=== PATIENT | male | born 2000 | race Caucasian/White ===

== ENCOUNTER → 2020-08-10 11:37 | Outpatient (BNVA) | payer OTHER, SELFPAY | PROVIDERS: Visit Provider Nurse Practitioner | DX: Z20.828 Contact with and (suspected) exposure to other viral communicable diseases (principal) | CPT/HCPCS: 87635 ==

== ENCOUNTER → 2020-08-13 11:43 | Outpatient (BNVA) | payer OTHER, SELFPAY | PROVIDERS: Visit Provider Family Medicine | DX: Z20.828 Contact with and (suspected) exposure to other viral communicable diseases (principal) | CPT/HCPCS: 87635 ==

== ENCOUNTER → 2021-08-28 13:29 | Outpatient (BNVA) | payer OTHER, SELFPAY | PROVIDERS: Visit Provider Nurse Practitioner Family | DX: Z20.822 Contact with and (suspected) exposure to COVID-19 (principal) | CPT/HCPCS: 87635 ==

== ENCOUNTER 2021-10-09 22:38 | Emergency (ER) | payer OTHER, SELFPAY ==
--- NOTE | 2021-10-09 22:43 | ED_ITS ---
HPI - Extremity Injury (Lower) General: Chief Complaint: Wound/Laceration Stated Complaint: Toe Pain Time Seen by Provider: 10/09/21 22:42 History of Present Illness: 21-year-old male patient comes in today with complaints of bilateral ingrown toenails to each great toe. Patient reports problems for the last several months. Patient was wanting to get the toenails removed tonight. Patient appears well. Patient appears in no acute distress. Review of Systems General: Reports: 10 or more systems reviewed and unremarkable except in HPI and below Skin/Breast: Reports: other (Bilateral ingrown toenails) [facility] ED PFSH: Social History (Updated 08/28/21 @ 10:01 by Yenifer Edgar NP) Smoking and tobacco status: never smoked Physical Exam Const: COMMON NORMALS: alert Resp: COMMON NORMALS: normal respiratory effort Cardio: COMMON NORMALS: regular rate and regular rhythm RATE: regular rate RHYTHM: regular rhythm Extremity: COMMON NORMALS: normal to inspection OTHER: Erythema and swelling noted to surrounding tissue ofbilateral great toenails Neuro: SENSORIUM/ORIENTATION: Yes alert Course Vital Signs: Vital signs: Vital Signs Temperature 98.4 F 10/09/21 22:44 Pulse Rate 92 10/09/21 22:44 Respiratory Rate 18 10/09/21 22:44 Blood Pressure 159/96 10/09/21 22:44 Pulse Oximetry 97 10/09/21 22:44 MDM - Extremity Injury (Lower) Medical Decision Making 21-year-old male patient comes in for concerns of ingrown toenails. On exam patient has significant granulation of tissue to the surrounding skin of bilateral great toenails. Redness and erythema is noted to both toes. Diff erential diagnosis includes ingrown toenail, cellulitis, paronychia. We will treat for infection with Bactrim DS 1 tablet twice a day for the next 7 days. Case management will be consulted for follow-up with operations management trainee for definitive treatment of the ingrown toenails. Patient was agreeable to plan. Discharge Plan Discharge Patient Disposition: Home Clinical Impression: Ingrown toenail of both feet Condition: Stable Prescriptions: New sulfamethoxazole-trimethoprim 800-160 mg tablet 1 tab PO BID 7 Days Qty: 14 0RF No Action lisinopril 5 mg tablet 5 mg PO DAILY 0RF Discharge Orders: Discharge ED (Routine); Ordered 10/09/21 Ordered By: Cisco Mathur Discharge Diet: Usual diet Discharge Activity: Increase activity as tolerated Patient Instructions: Ingrown Nail (ED) Activity Restrictions/Additional Instructions: Activity as tolerated. Take antibiotics as directed. Case management will contact you in the next 1 to 2 days for follow-up appointment with operations management trainee Dr. Little for further evaluation and treatment. Coding Level of Care Code ED Glass Blower for Chg Fwd History Problem Focused Exam Problem Focused Medical Decision Making Low Complexity Time Spent (min) 20
[2021-10-09 22:44] VITALS: BP 159/96; PULSE 92; RESP 18; TEMP 36.9; O2SAT 97; BMI 30.4
[2021-10-09] MEDS: sulfamethoxazole-trimeth DS 160-800 mg Tablet 1 TAB PO (22:54)
--- NOTE | 2021-10-10 08:46 | DCPLANNER ---
Addendum entered by Wendie Bray 11/08/21 14:58: Patient had a follow up appointment scheduled for 11.02.[address] Little at ortho - patient did attend appointment. Addendum entered by Wendie Bray 10/12/21 19:37: Patient has a followup appointment scheduled for October at 10:[address] Little. Clinic will call patient with appointment information. Original Note: pe manager had message to schedule a follow up appointment for patient with ortho. pe manager called the ortho clinic, spoke with Jamila, gave clinic patients information. pe manager was told that patients information would be printed and reviewed. Clinic will call patient with appointment information.
== END 2021-10-09 23:01 | disposition home or self-care (01) ==
PROVIDERS: Emergency Provider Nurse Practitioner Family
DX: L60.0 Ingrowing nail (principal)
CPT/HCPCS: 99282

== ENCOUNTER → 2022-01-25 08:40 | Outpatient (BNVA) | payer OTHER, SELFPAY | PROVIDERS: PCP Family Medicine; Visit Provider Family Medicine | DX: M25.512 Pain in left shoulder (principal); Z76.89 Persons encountering health services in other specified circumstances; I10 Essential (primary) hypertension | CPT/HCPCS: 80053; 85027 ==

== ENCOUNTER 2022-01-30 14:53 | Emergency (ER) | payer OTHER, SELFPAY ==
[2022-01-30 14:59] VITALS: BP 153/90; PULSE 110; RESP 18; TEMP 37.1; O2SAT 98; BMI 31.9
--- NOTE | 2022-01-30 15:24 | ED_ITS ---
HPI - General Adult General: Chief complaint: General Medical Stated complaint: high BP Time Seen by Provider: 01/30/22 15:21 History of Present Illness: [21]yo patient w/ x hx of HTN not currently on any medication presenting to the ED with complaints that his BP is uncontrolled. Patient has a history of elevated blood pressure for which she was on lisinopril 5 mg up until May of last year. About a few days ago, patient reported feeling jitteriness in his arms and went to see his primary care provider at. At that point time, patient was noted to have elevated blood pressure was given prescription for lisinopril 20 mg. Patient has been unable to fill the medicine at this time. Patient continues to have jittery like sensation and came to the emergency room requesting to see if there is kidney injury from his elevated blood pressure. Denies chest pain, SOB, palpitation, N/V/D, pain radiating to the shoulder, headache, vision changes, LOC, or focal neurological deficits. Patient also denies light-headedness, syncope, vertigo abdominal pain, back pain. Tolerating PO meds without issues. Onset: earlier today Duration: ongoing Location: home Severity: mild Associated symptoms: Deny chest pain, dyspnea, nausea, rash, palpitations or vomiting Review of Systems Const: Denies: fever(s) or chills Eyes: Denies: change in vision ENMT: Denies: mouth pain Card: Denies: chest pain or palpitations Resp: Denies: dyspnea or non-productive cough GI: Denies: abdominal pain, nausea, vomiting or diarrhea : Denies: dysuria Musc: Reports: other (+arm and leg jitteriness); Denies: extremity pain Skin/Breast: Denies: rash or new lesions Neuro: Denies: weakness in extremities Psych: Reports: other (Normal mood) Marcelo/Lymph: Denies: easy bruising PFSH ED PFSH: Medical History Hypertension Social History Smoking and tobacco status: never smoked Alcohol intake: current Alcohol intake frequency: holidays/special occasions only Substance/Drug Use: never Physical Exam Const: COMMON NORMALS: alert HENMT: COMMON NORMALS: atraumatic HEAD & SCALP: atraumatic MOUTH: moist mucous membranes not abnormal Eye: COMMON NORMALS: EOMs intact bilaterally and conjunctivae normal CONJUNCTIVA: Yes conjunctivae normal Neck/C-Spine: COMMON NORMALS: full ROM and supple Resp: COMMON NORMALS: normal respiratory effort and clear to auscultation bilaterally AUSCULTATION: clear to auscultation bilaterally Cardio: COMMON NORMALS: regular rate RATE: regular rate GI: COMMON NORMALS: Soft to palpation and non-tender PALPATION: Yes Soft to palpation Extremity: COMMON NORMALS: full ROM Neuro: SENSORIUM/ORIENTATION: Yes alert MOTOR EXAM: No Abnormal motor strength present and Other motor observations present (no focal motor deficits) Psych: COMMON NORMALS: speech normal SPEECH: Yes normal speech MOOD & AFFECT: Yes euthymic mood Course Vital Signs: Vital signs: Vital Signs Temperature 97.9 F 01/30/22 15:47 Pulse Rate 96 01/30/22 15:47 Respiratory Rate 18 01/30/22 14:59 Blood Pressure 144/81 01/30/22 15:47 Pulse Oximetry 97 01/30/22 15:47 MDM - General Adult Medical Decision Making [21]yo patient w/ hx of HTN not currently on medication medications presenting to the ED with high BP readings x 1 day and jittery nests. Rest of exam incl uding full neuro exam intact. Given presentation, history and exam, I do not suspect aortic dissection, hypertensive encephalopathy, intracranial hemorrhage, ACS, TIA/CVA, flash pulmonary edema. Workup: CBC, BMP Intervention: Amlodipine 5mg [4:45pm] On reassessment, BP improved after 5mg of amlodpine. Patient continues to be symptom-free at this time. Do not suspect an emergent cause. Discussed with the patient the importance of logging BPs and following up with his PCP for adjustment of BP if BP continues to be persistently high. Given return instructions. Lab including Cr wnl. Rx: Amlodipine 5mg QDaily for elevated BP. Patient is instructed to either take amlodipine or his lisinopril but not both. Based on history, exam, vital signs, and work up (as indicated) I do not suspect an ongoing emergent medical condition, and I believe the patient is safe for discharge and outpatient follow-up. The plan of care was discussed with the patient and all questions were answered. The patient agrees with the plan of care and is discharged in stable condition with verbal and written instructions, and verbalized understanding and ability to comply. I discussed the diagnosis and treatment plan at length with the patient. The patient understands signs and symptoms (including those which are new or worsening) which should prompt return to the ED. The patient is to seek prompt outpatient follow-up as noted verbally and/or in the discharge instructions. At the time of discharge the patient is well-appearing, well-hydrated, non-toxic, and assures appropriate follow-up as an outpatient. Lab Data : 01/30/22 15:30 01/30/22 15: Laboratory Results WBC 9.4 10^3/uL (4.0-10.0) 01/30/22 15: RBC 5.29 10^6/uL (4.1-5.3) 01/30/22 15: Hgb 14.7 g/dL (11.7-16.6) 01/30/22 15: Hct 40.8 % (42.0-52.0) L 01/30/22: MCV 77.1 fl (80-94) L 01/30/22 15: MCH 27.8 pg (28.0-34.0) L 01/30/22 15: MCHC 36.0 g/dL (30.0-36.0) 01/30/22: RDW 12.5 % (12.1-15.1) 01/30/22 15: Plt Count 322 10^3/cmm (130-400) 01/30/22: MPV 8.8 fL (7.4-10.4) 01/30/22: Neut % (Auto) 49.2 % 01/30/22: Lymph % (Auto) 40.6 % 01/30/22 15: [place] % (Auto) 7.5 % 01/30/22: Eos % (Auto) 1.3 % 01/30/22: Baso % (Auto) 1.1 % 01/30/22: Neut # (Auto) 4.61 10^3/uL (1.8-7.7) 01/30/22: Lymph # (Auto) 3.8 10^3/uL (0.8-4.8) 01/30/22 15:30 [place] # (Auto) 0.7 10^3/uL (0.2-0.9) 01/30/22 15:30 Eos # (Auto) 0.1 10^3/uL (0.0-0.8) 01/30/22 15:30 Baso # (Auto) 0.1 10^3/uL (0.0-0.1) 01/30/22 15:30 Nucleated RBC % (auto) 0 % 01/30/22 15:30 Nucleated RBCs # 0.0 /100WBC 01/30/22 15:30 Sodium 139 mmol/L (136-145) 01/30/22 15:30 Potassium 4.0 mmol/L (3.5-5.1) 01/30/22 15:30 Chloride 101 mmol/L (98-107) 01/30/22 15:30 Carbon Dioxide 25 mmol/L (22-29) 01/30/22 15:30 Anion Gap 17.0 (5-19) 01/30/22 15:30 BUN 12 mg/dL (6-20) 01/30/22 15:30 Creatinine 0.8 mg/dL (0.7-1.2) 01/30/22 15:30 GFR Calculation 122.0 mL/min (90-130) 01/30/22 15:30 Glucose 100 mg/dL (65-115) 01/30/22 15:30 Calculated Osmolality 288 mOsm/kg (285-295) 01/30/22 15:30 Calcium 9.4 mg/dL (8.5-10.5) 01/30/22 15:30 Discharge Plan Discharge Patient Disposition: Home Clinical Impression: Elevated blood pressure reading Condition: Stable Prescriptions: New amlodipine 5 mg tablet 5 mg PO DAILY 20 Days Qty: 20 0RF No Action lisinopril 20 mg tablet 20 mg PO DAILY Qty: 30 5RF Tylenol Ex Str Rapid Release 500 mg Tablet 500 - 1,000 mg PO Q6H PRN (Reason: Pain) 0RF Discharge Orders: Discharge ED (Routine); Ordered 01/30/22 Ordered By: Koko Lopez Referrals: Michael Woods DO [Primary Care Provider] - Discharge Diet: Advance as tolerated Discharge Activity: Increase activity as tolerated Patient Instructions: Hypertension (ED) Activity Restrictions/Additional Instructions: You need to follow-up with your primary care provider for further adjustment of your blood pressure. Your blood pressure puts you at risk for developing strokes and heart attack. Therefore it is very important for you to follow-up with this number to see if the numbers improve gradually. Because blood pressure adjustment is a gradual process, were not able to change it in 1 visit. Therefore please log your blood pressure and follow-up with your primary care provider in the next 72 hours for further adjustment of your blood pressures. Coding Level of Care Code ED Fitness Sales Consultant for Raul Fwd Exam Comprehensive
--- NOTE | 2022-01-30 15:27 | ECG_ITS ---
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 Measurements Intervals Walker Rate: 101 P: 53 [place]: 162 QRS: -7 QRSD: 109 T: 53 QT: 326 QTc: 424 Interpretive Statements SINUS TACHYCARDIA No previous ECG available for comparison Electronically Signed On 01-30-2022 18:30:16 CDT by Chucky Gan M.D. [id number]
[2022-01-30 15:40] LABS: Basophils # 0.1 10^3/uL (0.0-0.1); Basophils % 1.1 %; Eosinophils # 0.1 10^3/uL (0.0-0.8); Eosinophils % 1.3 %; Hematocrit 40.8 % (42.0-52.0); Hemoglobin 14.7 g/dL (11.7-16.6); Lymphocytes # 3.8 10^3/uL (0.8-4.8); Lymphocytes % 40.6 %; Mean Corpuscular Hemoglobin 27.8 pg (28.0-34.0); Mean Corpuscular Volume 77.1 fl (80-94); Mean Platelet Volume 8.8 fL (7.4-10.4); Monocytes # 0.7 10^3/uL (0.2-0.9); Monocytes % 7.5 %; Neutrophils # 4.61 10^3/uL (1.8-7.7); Neutrophils % 49.2 %; Nucleated Red Blood Cells % 0 %; Platelet Count 322 10^3/cmm (130-400); Red Blood Count 5.29 10^6/uL (4.1-5.3); Red Cell Distribution Width 12.5 % (12.1-15.1); White Blood Count 9.4 10^3/uL (4.0-10.0)
[2022-01-30 15:47] VITALS: BP 144/81; PULSE 96; TEMP 36.6; O2SAT 97
--- NOTE | 2022-01-30 15:50 | PC.NURSE ---
EKG done at 1545 and shown to ER doctor
[2022-01-30 15:57] LABS: Blood Urea Nitrogen 12 mg/dL (6-20); Calcium 9.4 mg/dL (8.5-10.5); Carbon Dioxide 25 mmol/L (22-29); Chloride 101 mmol/L (98-107); Glucose 100 mg/dL (65-115); Osmolality Calculated 288 mOsm/kg (285-295); Sodium 139 mmol/L (136-145)
[2022-01-30] MEDS: amlodipine 5 mg Tablet 2.5 MG PO (15:58)
[2022-01-30 16:38] VITALS: BP 138/87; PULSE 90; RESP 18; O2SAT 96
== END 2022-01-30 16:39 | disposition home or self-care (01) ==
PROVIDERS: Emergency Provider Emergency Medicine; PCP Family Medicine
DX: I10 Essential (primary) hypertension (principal)
CPT/HCPCS: 80048; 85025; 93005; 99283

== ENCOUNTER → 2022-03-10 12:09 | Outpatient (BNVA) | payer SELFPAY | PROVIDERS: PCP Family Medicine; Visit Provider Registered Nurse Neonatal Intensive Care | DX: U07.1 COVID-19 (principal) | CPT/HCPCS: 87635 ==

== ENCOUNTER 2023-12-27 17:49 | Emergency (ER) | payer OTHER, SELFPAY ==
[2023-12-27 18:00] VITALS: BP 148/76; PULSE 104; RESP 16; TEMP 36.7; O2SAT 98; BMI 33.6
[2023-12-27 18:01] VITALS: BP 148/76; PULSE 104; RESP 16; O2SAT 98
--- NOTE | 2023-12-27 18:38 | ED_ITS ---
HPI - Recheck/Abnormal Lab/Rx General: Chief Complaint: Recheck/Abnormal Lab/Rx Stated Complaint: elevated bp Time Seen by Provider: 12/27/23 18:22 Source: patient Mode of arrival: ambulatory Limitations: no limitations History of Present Illness: Patient is a 23-year-old male with a history of diagnosed hypertension here wanting a refill of his lisinopril. Patient states he was diagnosed with hyper tension several years ago. He states he normally takes 20 Mg daily lisinopril but states he recently moved to the area and has not followed up with a primary care provider. Patient states intermittently he will get episodes where his blood pressure spikes. He states these are controlled while on his lisinopril. MD complaint: medication refill request Initial visit (ago): day(s) Initial visit for: other (rx refill) Returns today for: request for prescription Symptoms since prior visit: no new symptoms Context: ran out of medication Associated symptoms: none Review of Systems Card: Denies: chest pain Resp: Denies: dyspnea GI: Denies: abdominal pain Neuro: Denies: headache(s) or dizziness PFSH ED PFSH: Medical History Hypertension Social History Smoking and tobacco/nicotine status: never used tobacco/nicotine Alcohol intake: current Alcohol intake frequency: holidays/special occasions only Substance/Drug Use: never Physical Exam Const: COMMON NORMALS: no acute distress, average body habitus, patient oriented x3, no limitations, healthy appearing, alert and well nourished HENMT: COMMON NORMALS: normocephalic and atraumatic HEAD & SCALP: normal to inspection, normocephalic and atraumatic Resp: COMMON NORMALS: normal respiratory effort and clear to auscultation bilaterally AUSCULTATION: clear to auscultation bilaterally Cardio: COMMON NORMALS: regular rate and regular rhythm RATE: regular rate RHYTHM: regular rhythm Neuro: DELORIS COMA SCALE: document GCS findings Lyons coma scale eye opening: Spontaneous Deloris coma scale verbal response: Orientated Lyons coma scale motor response: Obey commands Lyons coma scale total score: 15 COMMON NORMALS: patient oriented x3 SENSORIUM/ORIENTATION: Yes alert Course Vital Signs: Vital signs: Vital Signs Temperature 98.0 F 12/27/23 18:00 Pulse Rate 100 12/27/23 18:49 Respiratory Rate 16 12/27/23 18:49 Blood Pressure 142/71 12/27/23 18:49 Pulse Oximetry 99 12/27/23 18:49 Oxygen Delivery Me thod Room Air 12/27/23 18:01 MDM - Recheck/Abnormal Lab/Rx Medical Decision Making Case management referral placed to get patient established with a PCP. He will be provided a refill of his lisinopril. No radiology studies performed this visit Discharge Plan Discharge Patient Disposition: Home Clinical Impression: Hypertension Condition: Stable Prescriptions: Continued lisinopril 20 mg tablet 20 mg PO DAILY Qty: 30 0RF No Action Tylenol Ex Str Rapid Release 500 mg Tablet 500 - 1,000 mg PO Q6H PRN (Reason: Pain) Discharge Orders: Discharge ED (Routine); Ordered 12/27/23 Ordered By: Rosa Bauman Patient Instructions: Hypertension (ED) Coding Level of Care Code ED Photographer'S Assistant for Raul Rosenberg
[2023-12-27 18:49] VITALS: BP 142/71; PULSE 100; RESP 16; O2SAT 99
--- NOTE | 2024-01-06 07:12 | DCPLANNER ---
romaine gr office to have new pt appt and er f/u scheduled
== END 2023-12-27 18:50 | disposition home or self-care (01) ==
PROVIDERS: Emergency Provider Physician Assistant
DX: I10 Essential (primary) hypertension (principal)
CPT/HCPCS: 99282

== ENCOUNTER 2024-08-07 16:49 | Emergency (ER) | payer OTHER, SELFPAY ==
[2024-08-07 16:58] VITALS: BP 154/85; PULSE 99; RESP 17; TEMP 37.1; O2SAT 100; BMI 25.0
--- NOTE | 2024-08-07 17:01 | ECG_ITS ---
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 Measurements Intervals [place] Rate: 104 P: 53 [place]: 156 QRS: 0 QRSD: 109 T: 45 QT: 321 QTc: 422 Interpretive Statements SINUS TACHYCARDIA PROBABLE SEPTAL MYOCARDIAL INFARCTION , PROBABLY OLD [35 ms Q WAVE IN V1/V2] INTERPRETATION BASED ON A DEFAULT AGE OF 40 YEARS Compared to ECG 01/30/2022 15:39:38 Myocardial infarct finding now present Electronically Signed On 08-07-2024 19:51:21 SENIOR DIRECTOR INSIGHT by Emani Abreu M.D. [id number]
--- NOTE | 2024-08-07 19:07 | XRR_ITS ---
PROCEDURE INFORMATION: Exam: XR Chest Exam date and time: 08/07/2024 7:31 PM Age: 23 years old Clinical indication: Cough and dyspnea; Patient HX: Chest pain; Dyspnea; Cough TECHNIQUE: Imaging protocol: Radiologic exam of the chest. Views: 1 view. COMPARISON: No relevant prior studies available. FINDINGS: Lungs: No focal consolidation. Pleural spaces: No evidence of pneumothorax. No evidence of pleural effusion. Heart/Mediastinum: Cardiomediastinal silhouette is within normal limits. Bones/joints: No evidence of acute osseous abnormality. XR/XR chest 1V portable [id number] IMPRESSION: 1. No acute cardiopulmonary abnormality.
--- NOTE | 2024-08-07 19:10 | ED_ITS ---
HPI - Chest Pain 2 General: Chief Complaint: Chest Pain Stated Complaint: chest pain Time Seen by Provider: 08/07/24 19:07 History of Present Illness: 23-year-old male presents emergency room with a complaint of chest pain. Patient had episode of chest pain while at work while he was at work was not doing anything exertional no associated shortness of breath. Chest pain is resolved spontaneously. He had a recurrence of chest discomfort today. Associated symptoms: Reports fever(s); Deny abdominal pain or dyspnea Related Data Home Medications Medication Instructions Recorded Confirmed acetaminophen 500 mg tablet 500 - 1,000 mg PO Q6H PRN Pain 01/30/22 02/06/22 Previous Rx's Medication Instructions Recorded lisinopril 20 mg tablet 20 mg PO DAILY #30 tabs 08/07/24 Allergies Allergy/AdvReac Type Severity Reaction Status Date / Time No Known Allergies Allergy Verified 03/10/22 12:15 Review of Systems 2 Const: Reports: fever(s); Denies: chills Card: Reports: chest pain Resp: Denies: dyspnea GI: Denies: abdominal pain : Denies: dysuria, urinary frequency or urinary urgency Musc: Denies: neck pain or back pain Skin/Breast: Denies: rash PFSH ED 2 PFSH: Medical History Hypertension Social History Smoking and tobacco/nicotine status: never used tobacco/nicotine Alcohol intake: current Alcohol intake frequency: holidays/special occasions only Substance/Drug Use: never Physical Exam 2 Const: COMMON NORMALS: no acute distress GENERAL APPEARANCE: cooperative and comfortable ORIENTATION/CONSCIOUSNESS: Yes awake, Yes oriented to person, Yes oriented to place and Yes oriented to time HENMT: COMMON NORMALS: normocephalic, atraumatic and hearing grossly normal bilaterally HEAD & SCALP: normocephalic and atraumatic Resp: COMMON NORMALS: normal respiratory effort, No retractions, No use of accessory muscles and clear to auscultation bilaterally AUSCULTATION: clear to auscultation bilaterally Cardio: COMMON NORMALS: regular rate, regular rhythm and No murmurs present (Cardio) RATE: regular rate RHYTHM: regular rhythm GI: COMMON NORMALS: Soft to palpation and No hepatosplenomegaly present A USCULTATION: Yes normoactive bowel sounds PALPATION: Yes Soft to palpation, No Tenderness to palpation present (GI), No Guarding due to palpation present (GI) and Yes No hepatosplenomegaly present Extremity: COMMON NORMALS: normal to inspection, capillary refill normal, no clubbing, cyanosis or edema, no calf tenderness and no pedal edema Neuro: SENSORIUM/ORIENTATION: Yes oriented to person, Yes oriented to place and Yes oriented to time Skin: COMMON NORMALS: no rashes or lesions noted GENERAL SKIN EXAM: no rashes or lesions noted Course 2 Vital Signs: Vital signs: Vital Signs Temperature 98.7 F 08/07/24 16:58 Pulse Rate 65 08/07/24 23:03 Respiratory Rate 21 H 08/07/24 23:03 Blood Pressure 127/74 08/07/24 23:03 Pulse Oximetry 93 08/07/24 23:03 Oxygen Delivery Me thod Room Air 08/07/24 22:17 MDM - Chest Pain Medical Decision Making First EKG showed a small Q wave in V2 second 1 there is no Q waves. Suspect this was related to lead placement and right. Cardiac enzymes were both within normal limits there is a small delta. Reviewed with Dr. Gan he also agreed there is nothing further need be done at this time will discharge patient home. He has been out of his lisinopril given a refill of that. Asked case management to help him make arrangements for establishing with a PCP. Medical Records I reviewed the patient's medical records. Lab Data I reviewed the patient's lab results. 08/07/24 19:15 08/07/24 19:39 Radiology Impressions Chest X-Ray 08/07/24 19:07 IMPRESSION: 1. No acute cardiopulmonary abnormality. Laboratory Results WBC 8.31 10^3/uL (3.29-11.43) 08/07/24 19:15 RBC 5.36 10^6/uL (3.85-5.65) 08/07/24 19:15 Hgb 15.50 g/dL (11.27-16.99) 08/07/24 19:15 Hct 43.4 % (37-53) 08/07/24 19:15 MCV 81.0 fl (82-101) L 08/07/24 19:15 MCH 28.9 pg (27-33) 08/07/24 19:15 MCHC 35.7 g/dL (30-55) 08/07/24 19:15 RDW 12.8 % (12.1-15.1) 08/07/24 19:15 Plt Count 324 10^3/cmm (157-399) 08/07/24 19:15 MPV 9.6 fL (7.4-10.4) 08/07/24 19:15 Neut % (Auto) 53.1 % 08/07/24 19:15 Lymph % (Auto) 32.9 % 08/07/24 19:15 Dickenson % (Auto) 10.6 % 08/07/24 19:15 Eos % (Auto) 1.6 % 08/07/24 19:15 Baso % (Auto) 1.3 % 08/07/24 19:15 Neut # (Auto) 4.42 10^3/uL (1.8-7.7) 08/07/24 19:15 Lymph # (Auto) 2.7 10^3/uL (0.8-4.8) 08/07/24 19:15 Dickenson # (Auto) 0.9 10^3/uL (0.2-0.9) 08/07/24 19:15 Eos # (Auto) 0.1 10^3/uL (0.0-0.8) 08/07/24 19:15 Baso # (Auto) 0.1 10^3/uL (0.0-0.1) 08/07/24 19:15 Nucleated RBC % (auto) 0 % 08/07/24 19:15 Nucleated RBCs # 0.0 /100WBC 08/07/24 19:15 Sodium 137 mmol/L (136-145) 08/07/24 19:39 Potassium 4.1 mmol/L (3.5-5.1) 08/07/24 19:39 Chloride 103 mmol/L (98-107) 08/07/24 19:39 Carbon Dioxide 26 mmol/L (22-29) 08/07/24 19:39 Anion Gap 12.1 (5-19) 08/07/24 19:39 BUN 11 mg/dL (6-20) 08/07/24 19:39 Creatinine 0.9 mg/dL (0.7-1.2) 08/07/24 19:39 GFR Calculation 104.6 mL/min (90-130) 08/07/24 19:39 Glucose 121 mg/dL (65-115) H 08/07/24 19:39 Calculated Osmolality 285 mOsm/kg (285-295) 08/07/24 19:39 Calcium 9.9 mg/dL (8.5-10.5) 08/07/24 19:39 Total Bilirubin 0.6 mg/dL (0.15-1.2) 08/07/24 19:39 AST 15 U/L (0-40) 08/07/24 19:39 ALT 18 U/L (0-41) 08/07/24 19:39 Alkaline Phosphatase 54 U/L (40-130) 08/07/24 19:39 Troponin T Baseline < 6 ng/L (0-15) 08/07/24 19:39 Troponin T 120 Minute 10.48 ng/L (0-15) 08/07/24 21:48 Delta Troponin T 4.47012 ABS# (0-10) 08/07/24 21:48 Total Protein 7.8 g/dL (6.6-8.7) 08/07/24 19:39 Albumin 4.9 g/dL (3.5-5.2) 08/07/24 19:39 Globulin 2.9 g/dL (1.3-4.6) 08/07/24 19:39 All radiology interpretation(s) finalized by discharge EKG Data EKG 1: Interpretation: Sinus tachycardia rate of 104 isolated Q wave in V2 CO interval 156 QT [address] changes Clincial Decision Support The following clinical decision support tools were used to aid in care of the patient HEART Score -> History: Slightly Suspicous, EKG: Non-specific Changes, Age: Less than 45 yrs, Risk Factors: 1 or 2 Risk Factors, Troponin: Baseline Trop <16 ng/L. Resulting HEART Score: 2. Discharge Plan Discharge Patient Disposition: Home Clinical Impression: Atypical chest pain, Essential hypertension Condition: Stable Prescriptions: New lisinopril 20 mg tablet 20 mg PO DAILY Qty: 30 0RF Discontinued lisinopril 20 mg tablet 20 mg PO DAILY Qty: 30 0RF No Action Tylenol Ex Str Rapid Release 500 mg Tablet 500 - 1,000 mg PO Q6H PRN (Reason: Pain) Discharge Orders: Discharge ED (Routine); Ordered 08/07/24 Ordered By: Robin Mohan Discharge Diet: Usual diet Discharge Activity: Resume usual activity Patient Instructions: Opioid Safety, Pain Management Activity Restrictions/Additional Instructions: Thank you for choosing [facility] for your healthcare needs today. It is very important that you follow up as instructed or that you return to the Emergency Department should you have concerns or if your condition changes or worsens in any way. You are seen in the emergency room with complaints of chest discomfort. EKG did not show any acute changes your cardiac enzymes were within the normal range. Reviewed your EKG and other lab findings with the heel painter on-call he concurs and does not recommend any further evaluation at this time follow-up with your primary care doctor. Suspect your chest discomfort is likely from a non-GI source. If you have recurrence of symptoms follow-up with primary care. Stand Alone Forms: Work/School Release Coding Level of Care Code ED Distance Education Director for Raul Rosneberg
[2024-08-07 19:26] LABS: Basophils # 0.1 10^3/uL (0.0-0.1); Basophils % 1.3 %; Eosinophils # 0.1 10^3/uL (0.0-0.8); Eosinophils % 1.6 %; Hematocrit 43.4 % (37-53); Lymphocytes # 2.7 10^3/uL (0.8-4.8); Lymphocytes % 32.9 %; Mean Corpuscular HGB Conc 35.7 g/dL (30-55); Mean Corpuscular Hemoglobin 28.9 pg (27-33); Mean Platelet Volume 9.6 fL (7.4-10.4); Monocytes # 0.9 10^3/uL (0.2-0.9); Monocytes % 10.6 %; Neutrophils # 4.42 10^3/uL (1.8-7.7); Neutrophils % 53.1 %; Nucleated Red Blood Cells % 0 %; Platelet Count 324 10^3/cmm (157-399); Red Blood Count 5.36 10^6/uL (3.85-5.65); Red Cell Distribution Width 12.8 % (12.1-15.1); White Blood Count 8.31 10^3/uL (3.29-11.43)
[2024-08-07 20:13] VITALS: BP 138/84; PULSE 105; RESP 23; O2SAT 92
[2024-08-07 20:26] LABS: Alanine Aminotransferase 18 U/L (0-41); Albumin Level 4.9 g/dL (3.5-5.2); Alkaline Phosphatase 54 U/L (40-130); Anion Gap 12.1 (5-19); Aspartate Amino Transferase 15 U/L (0-40); Blood Urea Nitrogen 11 mg/dL (6-20); Calcium 9.9 mg/dL (8.5-10.5); Carbon Dioxide 26 mmol/L (22-29); Chloride 103 mmol/L (98-107); Creatinine Clr Calc Pharmacy 124.0236; Globulin 2.9 g/dL (1.3-4.6); Glomerular Filtration Rate 104.6 mL/min (90-130); Glucose 121 mg/dL (65-115); Osmolality Calculated 285 mOsm/kg (285-295); Potassium 4.1 mmol/L (3.5-5.1); Sodium 137 mmol/L (136-145); Total Bilirubin 0.6 mg/dL (0.15-1.2); Total Protein 7.8 g/dL (6.6-8.7)
[2024-08-07 21:21] LABS: Troponin(5th) Baseline < 6 ng/L (0-15)
[2024-08-07 22:17] VITALS: BP 119/96; PULSE 80; RESP 20; O2SAT 96
[2024-08-07 22:19] LABS: Troponin 5 2HR 10.48 ng/L (0-15); Troponin 5 2HR Delta 4.48001 ABS# (0-10)
[2024-08-07 23:03] VITALS: BP 127/74; PULSE 65; RESP 21; O2SAT 93
--- NOTE | 2024-08-10 07:41 | DCPLANNER ---
mesaged [facility] to establish PCP
== END 2024-08-07 22:55 | disposition home or self-care (01) ==
PROVIDERS: Emergency Provider Family Medicine
DX: R07.89 Other chest pain (principal); I10 Essential (primary) hypertension
CPT/HCPCS: 36415; 71045; 80053; 84484; 85025; 93005; 99285

== ENCOUNTER 2025-07-10 21:08 | Emergency (ER) | payer SELFPAY ==
--- OUTSIDE RECORDS SUMMARY | 2025-07-10 21:15 | XMS_ITS | Clinical Summary ---
Author Organization [facility] Address [address] [place] [address] Care Team Providers Care Forensic Materials Engineer Name Role Phone Barbara Chappell Primary Care Provider Allergies No known active allergies Medications No known medications Active Problems No known active problems Family History Medical History Relation Name Comments No Known Problems Brother Lung Cancer Father No Known Problems Sister 1 No Known Problems Sister 2 Relation Name Status Comments Brother Alive Father Mother Alive Sister 1 Alive Sister 2 Alive Social History Tobacco Use Types Packs/Day Years Used Date Smoking Tobacco: Never Smokeless Tobacco: Never Alcohol Use Standard Drinks/Week Comments Never 0 (1 standard drink = 0.6 oz pur e alcohol) Sex and Gender Information Value Date Recorded Sex Assigned at Not on file Legal Sex Male 8:33 AM R PROGRAMMER Gender Identity Not on file Sexual Orientation Not on file Last Filed Vital Signs Vital Sign Reading Time Taken Comments Blood Pressure 144/94 2019 3:20 PM R PROGRAMMER Pulse 91 2019 3:20 PM R PROGRAMMER Temperature 36.6 C (97.9 F) 2019 3:20 PM R PROGRAMMER Respiratory Rate 18 2019 3:20 PM R PROGRAMMER Oxygen Saturation 97% 2019 3:20 PM R PROGRAMMER Inhaled Oxygen Concentration - - Weight 86.6 kg (191 lb) 2019 3:20 PM R PROGRAMMER Height 170.2 cm (5' 7 ) 2019 3:20 PM R PROGRAMMER Body Mass Index 29.91 2019 3:20 PM R PROGRAMMER Plan of Treatment Health Maintenance Due Date Last Done Comments HPV VACCINES (1 - Male 3-dose series) 2015 DTAP/TDAP/TD VACCINES (1 - Tdap) 2019 HEPATITIS B VACCINES (1 of 3 - 19+ 3-dose series) 04/2020 INFLUENZA VACCINE (#1) 2025 Care Teams Forensic Materials Engineer Relationship Specialty Start Date End Date Barbara Chappell DO [address] [place] [address] PCP - General Family Practice 08/20/19
--- OUTSIDE RECORDS SUMMARY | 2025-07-10 21:15 | XMS_ITS | Clinical Summary ---
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 Gender Identity Not on file Sexual Orientation Not on file Last Filed Vital Signs Vital Sign Reading Time Taken Comments Blood Pressure 144/94 2019 3:20 PM CLUB STEWARD Pulse 91 2019 3:20 PM CLUB STEWARD Temperature 36.6 C (97.9 F) 2019 3:20 PM CLUB STEWARD Respiratory Rate 18 2019 3:20 PM CLUB STEWARD Oxygen Saturation - - Inhaled Oxygen Concentration - - Weight 86.6 kg (191 lb) 2019 3:20 PM CLUB STEWARD Height 170.2 cm (5' 7 ) 2019 3:20 PM CLUB STEWARD Body Mass Index 29.91 2019 3:20 PM CLUB STEWARD Plan of Treatment Health Maintenance Due Date Last Done Comments HPV VACCINES (1 - Male 3-dose series) 2015 DTAP/TDAP/TD VACCINES (1 - Tdap) 2019 HEPATITIS B VACCINES (1 of 3 - 19+ 3-dose series) 04/2020 INFLUENZA VACCINE (#1) 2025 Care Teams Supervisor Publications Production Relationship Specialty Start Date End Date Barbara Chappell DO [address] [place] [address] PCP - General Family Practice 08/20/19
[2025-07-10 21:32] VITALS: BP 156/92; PULSE 100; RESP 16; TEMP 37.3; O2SAT 99; BMI 32.2
[2025-07-10 21:34] VITALS: BP 156/92; PULSE 100; RESP 16; TEMP 37.3; O2SAT 99
--- NOTE | 2025-07-10 22:07 | W.ED.GENADLT ---
HPI - General Adult General: Chief complaint: General Medical Stated complaint: believes hernia right groin. abd area Time Seen by Provider: 07/10/25 21:10 Source: patient Mode of arrival: ambulatory Limitations: no limitations History of Present Illness: Patient is a 24-year-old male presents emergency department complaining of left groin pain for the past 8 months, but worse today. States that he thinks he has a hernia, occasionally he will noticed a bump in the left groin region that he is able to put back in himself. He does note that with coughing or exertion he will note that he has a knot in his testicular region as well, and that it causes him pain. He denies any fever, nausea/vomiting, urinary symptoms, penile discharge or bleeding, or any other symptoms at this time. MD complaint: Left groin pain Onset (ago): month(s) Associated symptoms: Deny chest pain, diaphoresis, dyspnea, headache(s), nausea, rash, palpitations or vomiting Related Data Home Medications ?Medication ?Instructions ?Recorded ?Confirmed acetaminophen 500 mg tablet 500 - 1,000 mg PO Q6H PRN Pain 01/30/22 10/15/24 Previous Rx's ?Medication ?Instructions ?Recorded lisinopril 20 mg tablet 20 mg PO DAILY #30 tabs 08/07/24 Held on 10/09/24. Instructions: Home Medication placed on hold at Doctor's office carbamide peroxide 6.5 % ear drops 5 drp otic (ear) Q12H 5 days #15 mL 10/09/24 (Debrox) Allergies Allergy/AdvReac Type Severity Reaction Status Date / Time No Known Allergies Allergy Verified 10/15/24 09:26 Review of Systems General: Reports: 10 or more systems reviewed and unremarkable except in HPI and below Const: Denies: fever(s), chills, change in appetite, change in weight or diaphoresis ENMT: Denies: throat pain or hoarseness Card: Denies: chest pain, palpitations or lightheadedness Resp: Denies: dyspnea, productive cough or wheezing GI: Reports: abdominal pain; Denies: nausea, vomiting, diarrhea, constipation, bloating, change in stool character or hematochezia : Reports: genital pain and testicular pain; Denies: flank pain, difficulty urinating, dysuria, urinary frequency, urinary urgency or hematuria Musc: Denies: neck pain or back pain Skin/Breast: Denies: rash or new lesions Neuro: Denies: headache(s) or dizziness PFSH ED PFSH: Medical History Vaping nicotine dependence, tobacco product Tinnitus Atypical chest pain Hypertension Social History Smoking and tobacco/nicotine status: current every day tobacco/nicotine user Alcohol intake: current Alcohol intake frequency: holidays/special occasions only Substance/Drug Use: former Physical Exam Const: COMMON NORMALS: no acute distress, average body habitus, patient oriented x3, no limitations, healthy appearing, alert and well nourished GENERAL APPEARANCE: cooperative and comfortable ORIENTATION/CONSCIOUSNESS: Yes awake Neck/C-Spine: COMMON NORMALS: full ROM, supple and no meningeal signs Resp: COMMON NORMALS: normal respiratory effort, No retractions, No use of accessory muscles and clear to auscultation bilaterally AUSCULTATION: clear to auscultation bilaterally, no crackles, no rales, no rhonchi and no wheezes Cardio: COMMON NORMALS: regular rate, regular rhythm, No gallops present (Cardio), No clicks present (Cardio), No murmurs present (Cardio) and No rub (Cardio) RATE: regular rate RHYTHM: regular rhythm GI: COMMON NORMALS: Normal to inspection, nondistended, normoactive bowel sounds present, Soft to palpation, non-tender, No hepatosplenomegaly present and no masses AUSCULTATION: Yes normoactive bowel sounds PALPATION: Yes Soft to palpation, No Guarding due to palpation present (GI), No Rigid due to palpation and Yes No hepatosplenomegaly present RECTAL EXAM: Yes deferred : OTHER: There is no palpable mass within the groin region to indicate any strangulated or incarcerated hernia. Testicular exam/scrotal exam unremarkable. Extremity: COMMON NORMALS: normal to inspection and full ROM Neuro: COMMON NORMALS: patient oriented x3, moves all extremities, no focal motor deficits and no sensory deficits noted SENSORIUM/ORIENTATION: Yes alert MENINGEAL SIGNS: Yes no meningeal signs Psych: COMMON NORMALS: mental status grossly normal, cooperative and speech normal SPEECH: Yes normal speech Skin: COMMON NORMALS: no rashes or lesions noted GENERAL SKIN EXAM: no rashes or lesions noted Course Vital Signs: Vital signs: Vital Signs Temperature 99.1 F 07/10/25 21:34 Pulse Rate 100 07/10/25 21:34 Respiratory Rate 16 07/10/25 21:34 Blood Pressure 156/92 07/10/25 21:34 Pulse Oximetry 99 07/10/25 21:34 Oxygen Delivery Me thod Room Air 07/10/25 21:34 MDM - General Adult Medical Decision Making This patient is presenting with clinical signs and symptoms of what appear to be a spontaneously reduced left inguinal hernia. There are no signs of incarceration or strangulation at time of examination, he had no fevers, nausea/vomiting, or other systemic symptoms or signs of illness. His vitals have been stable. This appears to have been an issue for him over the past 8 months, no acute emergency but at his request we will refer to general surgery for further official evaluation. Told to return with any signs or symptoms of strangulated hernia. No radiology studies performed this visit Discharge Plan Discharge Patient Disposition: Home Clinical Impression: Hernia, inguinal, left Condition: Stable Prescriptions: No Action Debrox 6.5 % drops 5 drp otic (ear) Q12H 5 Days Qty: 15 0RF Tylenol Ex Str Rapid Release 500 mg Tablet 500 - 1,000 mg PO Q6H PRN (Reason: Pain) lisinopril 20 mg tablet 20 mg PO DAILY Qty: 30 0RF Discharge Orders: Discharge ED (Routine); Ordered 07/10/25 Ordered By: Chiki Conde Referrals: Darryl Cleary MD [Primary Care Provider, Family Practice] Patient Instructions: Patient Portal & Sadie Instructions Activity Restrictions/Additional Instructions: Inguinal Hernia Discharge You have been diagnosed with a left inguinal hernia that has gone back into place on its own. There are no signs of serious complications, and you will be referred to a surgeon for further evaluation. Preventing Hernia Recurrence at Home - Resume normal daily activities as tolerated. Avoid heavy lifting (over 20 pounds) and strenuous exercise until you have been evaluated by surgery, as these may increase pressure in your abdomen and risk hernia recurrence. - If you experience constipation, treat it promptly with a high-fiber diet and adequate hydration to avoid straining during bowel movements, which can worsen hernias. - Maintain a healthy weight and avoid activities that cause excessive straining. Managing Pain - Mild pain or discomfort can be managed with [id number] medications such as acetaminophen (Tylenol) or nonsteroidal anti-inflammatory drugs (NSAIDs) like ibuprofen, following package instructions. - Rest when needed, but lying down may help relieve discomfort if pain worsens during the day. - If pain becomes moderate or severe, or does not improve with these measures, contact your healthcare provider. When to Seek Medical Care Immediately - Return to the emergency department or contact your doctor right away if you experience any of the following: - Sudden, severe pain at the hernia site - Redness, swelling, or tenderness over the hernia - Nausea, vomiting, or inability to pass stool or gas - The hernia bulge becomes firm, painful, or cannot be pushed back in These may be signs of hernia incarceration or strangulation, which require urgent medical attention. Follow-Up - Attend your scheduled appointment with the general surgeon for further evaluation and discussion of treatment options. - Most hernias eventually require surgery, especially if symptoms worsen, but watchful waiting is safe in the absence of complications. If you have any questions or concerns, please contact your healthcare provider. Stand Alone Forms: Work/School Release Print Language: Slovenian Coding Level of Care Code ED Pest Controller Assistant for Raul Rosenberg
[2025-07-10 22:09] VITALS: BP 135/65; PULSE 96; RESP 18; O2SAT 97
--- NOTE | 2025-07-12 09:07 | DCPLANNER ---
messaged gen surg for er f/u
== END 2025-07-10 22:11 | disposition home or self-care (01) ==
PROVIDERS: Emergency Provider Physician Assistant; PCP Family Medicine
DX: K40.90 Unilateral inguinal hernia, without obstruction or gangrene, not specified as recurrent (principal)
CPT/HCPCS: 99281

== ENCOUNTER 2025-08-07 04:02 | Emergency (ER) | payer SELFPAY ==
--- OUTSIDE RECORDS SUMMARY | 2025-08-07 04:07 | XMS_ITS | Clinical Summary ---
Author Organization [email or web address] Address [address] Attn: [place] [address] Care Team Providers Care Human Resources Receptionist Name Role Phone Barbara Chappell Primary Care Provider [phone] Allergies No known active allergies Family History [...] on file Legal Sex Male 9:41 PM LOGISTICS CENTER MANAGER Gender Identity Not on file Sexual Orientation Not on file Last Filed Vital Signs Vital Sign Reading Time Taken Comments Blood Pressure 144/94 2019 3:20 PM LOGISTICS CENTER MANAGER Pulse 91 2019 3:20 PM LOGISTICS CENTER MANAGER Temperature 36.6 C (97.9 F) 2019 3:20 PM LOGISTICS CENTER MANAGER Respiratory Rate 18 2019 3:20 PM LOGISTICS CENTER MANAGER Oxygen Saturation - - Inhaled Oxygen Concentration - - Weight 86.6 kg (191 lb) 2019 3:20 PM LOGISTICS CENTER MANAGER Height 170.2 cm (5' 7 ) 2019 3:20 PM LOGISTICS CENTER MANAGER Body Mass Index 29.91 2019 3:20 PM LOGISTICS CENTER MANAGER Plan of Treatment Health Maintenance Due Date Last Done Comments HPV VACCINES (1 - Male 3-dose series) 2015 DTAP/TDAP/TD VACCINES (1 - Tdap) 2019 HEPATITIS B VACCINES (1 of 3 - 19+ 3-dose series) 04/2020 INFLUENZA VACCINE (#1) 2025 Care Teams Human Resources Receptionist Relationship Specialty Start Date End Date Barbara Chappell DO [address] [place] [address] PCP - General Family Practice 08/20/19
--- OUTSIDE RECORDS SUMMARY | 2025-08-07 04:07 | XMS_ITS | Clinical Summary ---
Author Organization [facility] Address [address] [place] [address] Care Team Providers Care Rental Boats Caretaker Name Role Phone Barbara Chappell Primary Care Provider [phone] Allergies No known active allergies Medications No [...] on file Legal Sex Male 8:33 AM SATURATION EQUIPMENT OPERATOR Gender Identity Not on file Sexual Orientation Not on file Last Filed Vital Signs Vital Sign Reading Time Taken Comments Blood Pressure 144/94 2019 3:20 PM SATURATION EQUIPMENT OPERATOR Pulse 91 2019 3:20 PM SATURATION EQUIPMENT OPERATOR Temperature 36.6 C (97.9 F) 2019 3:20 PM SATURATION EQUIPMENT OPERATOR Respiratory Rate 18 2019 3:20 PM SATURATION EQUIPMENT OPERATOR Oxygen Saturation 97% 2019 3:20 PM SATURATION EQUIPMENT OPERATOR Inhaled Oxygen Concentration - - Weight 86.6 kg (191 lb) 2019 3:20 PM SATURATION EQUIPMENT OPERATOR Height 170.2 cm (5' 7 ) 2019 3:20 PM SATURATION EQUIPMENT OPERATOR Body Mass Index 29.91 2019 3:20 PM SATURATION EQUIPMENT OPERATOR Plan of Treatment Health Maintenance Due Date Last Done Comments HPV VACCINES (1 - Male 3-dose series) 2015 DTAP/TDAP/TD VACCINES (1 - Tdap) 2019 HEPATITIS B VACCINES (1 of 3 - 19+ 3-dose series) 04/2020 INFLUENZA VACCINE (#1) 2025 Care Teams Rental Boats Caretaker Relationship Specialty Start Date End Date Barbara Chappell DO [address] [place] [address] PCP - General Family Practice 08/20/19
--- NOTE | 2025-08-07 04:08 | ED_ITS ---
HPI - Abdominal Pain General: Chief Complaint: Abdominal Pain Stated Complaint: coughed, severe pain shot between hurnias Time Seen by Provider: 08/07/25 04:08 History of Present Illness: Patient is a 24yoM with a history of bilateral inguinal hernias, previously diagnosed and scheduled for surgical repair, who presents after experiencing acute pain across the groin following a a bout of coughing. The pain radiated between both hernia sites but resolved spontaneously. He has had no remaining pain at the site, no lower abdominal pain, no vomiting. He is scheduled to have surgery in about a week for laparoscopic left inguinal repair. He states he has a chronic cough from smoking but has not been feeling sick with flulike symptoms recently Associated Symptoms: Denies chills, diarrhea and fever(s) Related Data Previous Rx's ?Medication ?Instructions ?Recorded lisinopril 20 mg tablet 20 mg PO DAILY #30 tabs 07/20 Held on 10/09/24. Instructions: Home Medication placed on hold at Doctor's office carbamide peroxide 6.5 % ear drops 5 drp otic (ear) Q1 2H 5 days #15 mL 10/09/24 (Debrox) Allergies Allergy/AdvReac Type Severity Reaction Status Date / Time No Known Allergies Allergy Verified 08/07/25 04:12 Review of Systems General: Reports: 10 or more systems reviewed and unremarkable except in HPI and below Const: Denies: fever(s) or chills Eyes: Denies: change in vision or eye discharge Card: Denies: chest pain, palpitations or swelling of feet/ankles Resp: Reports: non-productive cough GI: Denies: abdominal pain or diarrhea : Reports: genital pain Musc: Denies: neck pain or back pain Skin/Breast: Denies: rash or jaundice Neuro: Denies: headache(s), numbness in extremities or weakness in extremities Marcelo/Lymph: Denies: easy bruising or easy bleeding PFS ED PFSH: Medical History (Updated 08/07/25 @ 04:26 by Ketan Velez DO) Vaping nicotine dependence, tobacco product Tinnitus Atypical chest pain Hypertension Social History Smoking and tobacco/nicotine status: current every day tobacco/nicotine user Alcohol intake: current Alcohol intake frequency: holidays/special occasions only Substance/Drug Use: former Physical Exam Narrative: EXAM NARRATIVE: Left inguinal region with appreciable small left hernia with coughing that is easily reducible, no tenderness to the touch, no overlying erythema or bruising. Abdomen soft, nondistended, nontender, bowel sounds intact, no CVA tenderness. Slight sinus tachycardia, normotensive, no murmurs, no leg swelling. Course Vital Signs: Vital signs: Vital Signs Temperature 98.3 F 08/07/25 04:09 Pulse Rate 109 H 08/07/25 04:09 Respiratory Rate 16 08/07/25 04:09 Blood Pressure 141/93 08/07/25 04:09 Pulse Oximetry 98 08/07/25 04:09 Oxygen Delivery Me thod Room Air 08/07/25 04:09 MDM - Abdominal Pain Medical Decision Making -ddx: Reducible vs incarcerated vs strangulated hernia - Patient with acute pain at site of his left inguinal hernia after a coughing fit, had seemingly improved on its own but because of the radiation and severe and as of it at the time, he presented to the ED on evaluation. On evaluation, the area is only mildly palpable on coughing but easily reducible, no signs of strangulation or incarceration, no skin erythema or bruising, abdomen soft, nondistended and nontender. Mild sinus tachycardia, believed to be due to resolving pain, denying needing any medication at this time and reassured after our conversation and so he was deemed stable to be discharged home to continue with follow-up with surgery in a week and given worsening return precautions, discharged in stable condition with significant other at bedside. No radiology studies performed this visit Discharge Plan Discharge Patient Disposition: Home Clinical Impression: Reducible left inguinal hernia Condition: Stable Prescriptions: No Action Debrox 6.5 % drops 5 drp otic (ear) Q12H 5 Days Qty: 15 0RF lisinopril 20 mg tablet 20 mg PO DAILY Qty: 30 0RF Discharge Orders: Discharge ED (Routine); Ordered 08/07/25 Ordered By: Ketan Velez Referrals: Darryl Cleary MD [Primary Care Provider, Family Practice] Discharge Diet: Usual diet Discharge Activity: Resume usual activity Patient Instructions: Abdominal Pain (ED), Opioid Safety, Pain Management, Patient Portal & Sadie Instructions Activity Restrictions/Additional Instructions: You were seen for your inguinal pain in setting of your coughing and hernia, based on your description that hernia most likely popped out from the coughing but at some point reduced on its own and so nothing further needed to be done. If this happens again in the future, they are worrisome things to watch out for are: Exquisite pain to your left groin, the skin turning red or bruising, having vomiting or severe abdominal pain in which case return to the ED for emergent evaluation. Alternate Tylenol 650 mg and ibuprofen 400 mg every 4 hours as needed for any associated pain. Follow-up with the general surgeon as originally planned for surgery. Print Language: Estonian Coding Level of Care Code ED Check Writing Machine Operator for Raul Rosenberg
[2025-08-07 04:09] VITALS: BP 141/93; PULSE 109; RESP 16; TEMP 36.8; O2SAT 98; BMI 30.9
[2025-08-07 04:34] VITALS: BP 122/68; PULSE 86; RESP 16; O2SAT 98
== END 2025-08-07 04:40 | disposition home or self-care (01) ==
PROVIDERS: Emergency Provider Student in an Organized Health Care Education/Training Program; PCP Family Medicine
DX: K40.90 Unilateral inguinal hernia, without obstruction or gangrene, not specified as recurrent (principal); Z72.0 Tobacco use; I10 Essential (primary) hypertension
CPT/HCPCS: 99282

== ENCOUNTER 2025-08-16 09:15 | Day surgery (SDC) | payer SELFPAY ==
[2025-08-16] VITALS (11 sets, daily range): BP systolic 82–144; BP diastolic 53–100; PULSE 79–113; RESP 18–23; TEMP 37.1–37.3; O2SAT 89–98; BMI 30.9
--- NOTE | 2025-08-16 10:35 | P.HPUD_ITS ---
Surgery/Procedure H&P Update DATE OF PROCEDURE: August 16, 2025 DATE H&P PERFORMED: 07/21/25 H&P UPDATE INFORMATION: I have reviewed H&P completed within last 30 days, I have examined patient prior to procedure, No changes to prior documentation, H&P is in [facility] EMR on date indicated and Risks and benefits of the procedure reviewed PLANNED PROCEDURE: Operation Date: 08/16/25 10:55 Proposed Procedures p BILATERAL INGUINAL HERNIA REPAIR WITH MESH 79300 X2 K46.9(Bilateral) - Chiki Crawley MD
--- NOTE | 2025-08-16 11:03 | P.ANESASSM_ITS ---
Pre-Anesthetic Assessment Height/Weight: Height 1.73 m Weight 92.079 kg Temp Pulse Resp BP Pulse Ox O2 Del Method 98.8 F 79 18 144/100 97 Room Air 08/16/25 09:37 08/16/25 09:37 08/16/25 09:37 08/16/25 09:37 08/16/25 09:37 08/16/25 09:46 Preop Diagnosis: Bilat IH Operation Date: 08/16/25 10:55 Proposed Procedures p BILATERAL INGUINAL HERNIA REPAIR WITH MESH 87453 X2 K46.9(Bilateral) - Chiki Crawley MD Was Beta Sudeep taken within 24 hours: N/A Was Clonidine taken within 24 hours: N/A Last intake: Intake Last Liquid Date 08/15/25 Last Liquid Time 21:00 Last Solid Date 08/15/25 Last Solid Time 21:30 Social Alcohol and Tobacco Vaps Exam alert, oriented x 3, clear to auscultation bilaterally and regular rate & rhythm Airway Submandibular: within normal limits Cervical ROM: within normal limits Mallampati: Class II Dentition: full History/ROS No significant history except as noted and No significant complaints Pulmonary None reported CV/HEM Hypertension Currently no on meds None reported Hepatic None reported GI None reported Metabolic None reported Musc/skel None reported Neuropsych None reported Anesthetic Plan ASA status: 2 Anesthesia: Anesthesia Evaluation and General Risk of > 500 ml blood loss (7ml/kg in children): No Medications/Allergies Home Medications ?Medication ?Instructions ?Recorded ?Confirmed ?Last Taken ?Type carbamide peroxide 6.5 % ear drops 5 drp otic (ear) Q1 2H 5 days #15 mL 10/09/24 08/10/25 08/07/25 Rx (Debrox) Allergies Allergy/AdvReac Type Severity Reaction Status Date / Time No Known Allergies Allergy Verified 08/07/25 04:12 Current Medications Generic Name Dose Route Start Last Admin Trade Name Freq PRN Reason Stop Dose Admin Sodium Chloride 1,000 mls @ 30 mls/hr 08/16/25 09:30 08/16/25 09:59 Sodium Chloride 0.9% IV 08/17/25 09:29 30 mls/hr .Q24H YOSELIN Administration PFSH Anesthesia Medical History (Updated 08/15/25 @ 00:00 by ANIL Heredia) Vaping nicotine dependence, tobacco product Tinnitus Atypical chest pain Hypertension Social History Smoking and tobacco/nicotine status: current every day tobacco/nicotine user Alcohol intake: current Alcohol intake frequency: holidays/special occasions only Substance/Drug Use: former
[2025-08-16] MEDS: ceFAZolin 2,000 mg SDV 2000 MG IVP (11:15)
[2025-08-16] MEDS: lidocaine-epi 1% PF 1:200,000 30 mL SDV INJECTION (13:28)
[2025-08-16] MEDS: BUPivacaine 0.25% INJ 30 mL INJECTION (13:28)
--- NOTE | 2025-08-16 13:40 | PM.OP ---
Operative Report Date of procedure: August 16, 2025 Pre-op diagnosis: Bilateral inguinal hernia Post-op diagnosis: Bilateral inguinal hernia, left without direct and indirect component, right only indirect Post-op findings: There was bilateral inguinal hernias on the left there was a direct and indirect component and in the right side only a direct component. Procedure done: Laparoscopic repair of bilateral inguinal hernias Implants: Left large 3D max mesh, right medium 3D max mesh Specimens removed/disposition: None Surgeon: Chiki Crawley MD Aging Department Supervisor: OTILIA OR staff Estimated blood loss: 5 Complications: none Brief History: 24-year-old male with bilateral inguinal hernias who presented for repair. We discussed all risk and benefit subsequent to my preop note and decided to proceed. Procedure: Patient was brought into the OR, he was placed in a supine position. General anesthesia was given. The abdomen was prepped and draped in the usual sterile fashion. Timeout was conducted. 1.5 cm infraumbilical incision was made, the incision was deepened until the left rectus sheath was identified, the anterior rectus sheath was opened with electrocautery, the rectus muscle was retracted laterally exposing the retrorectus space, a lubricated balloon was advanced into the retrorectus space all the way down to the pubis with careful consideration of injuring any adjacent structures. The balloon was inflated under direct visualization, we verified that we were in the preperitoneal space and the symphysis of the pubis was able to be visualized. The balloon was then removed and replaced with a 12 mm balloon trocar. Additional 5 mm trocars were placed under direct visualization a suprapubic and infraumbilical region. I started my dissection by clearing the symphysis of the pubis with blunt dissection, I then placed my attention to the left side of the groin, I pulled down the tissue in front of the femoral vein. I then worked laterally to develop the space of Borgos, at this point it was noticeable that the patient had a direct inguinal hernia that was only fat-containing and it reduces spontaneously during insufflation. I then proceeded to dissect the cord structures and at that point I found a large cord lipomas and a large hernia sac that was carefully dissected 4 cm away from the inguinal ring. The blood vessels and vas deferens were preserved. The critical view of safety of the myopectineal orifice was achieved. I then proceeded to place a large left-sided 3D max mesh. The mesh was covering the direct femoral and indirect space and extending laterally and medially towards the area of the symphysis of the pubis. The mesh was fixed medially with 1 tack at the level of the upper portion of the symphysis of the pubis. I then placed my attention on the right side, I clear the pubic arch, there was no evidence of direct hernia or femoral hernia, I developed the lateral space of Piotr and then proceeded to dissect the cord structures, only a very small sac was identified, the sac was completely reduced as well as a small cord lipoma. I then placed a medium right sided 3D max mesh in the space covering the direct indirect and femoral spaces and I ensured that there was good overlap with the mesh on the contralateral side and fixated to the tissue on top of the symphysis of the pubis. Hemostasis was verified. The space was desufflated under direct visualization making sure adequate positioning of the mesh. Local anesthesia was infiltrated. The anterior rectus sheath was closed with #0 Vicryl with a UR 6 needle. Hemostasis was achieved. The wounds were closed in layers using 3-0 Vicryl for the subcutaneous tissue and 4-0 Monocryl for the skin. Dermabond was applied. At the end of the procedure all counts were correct the patient tolerated well the procedure was transferred to the PACU in stable condition.
[2025-08-16] MEDS: oxyCODONE 5 mg IR Tab/Cap PO (14:57)
== END 2025-08-16 15:35 | disposition home or self-care (01) ==
PROVIDERS: PCP Family Medicine; Visit Provider Surgery
PROC: (CPT 49650; principal; 2025-08-16 10:45)
DX: K40.20 Bilateral inguinal hernia, without obstruction or gangrene, not specified as recurrent (principal); I10 Essential (primary) hypertension; F17.290 Nicotine dependence, other tobacco product, uncomplicated
CPT/HCPCS: 49650; 51702; A4216; C1781; J0131; J0690; J1100; J1171; J1885; J2250; J2405; J2704; J3010; J3490; J7030; J9999